=== PATIENT | female | born 1965 | race Caucasian/White ===

== ENCOUNTER → 2023-05-26 | Outpatient (CLI) | payer BC ==
--- NOTE | 2023-05-26 12:13 | US ---
EXAMINATION TYPE: US pelvic complete DATE OF EXAM: 05/26/2023 COMPARISON: NONE CLINICAL INDICATION: Female, 58 years old with history of R10.31 RIGHT LOWER QUADRANT PAIN; total hys terectomy RLQ pain TECHNIQUE: Transabdominal (TA EXAM MEASUREMENTS: Uterus: Surgically absent Endometrial Stripe: Surgically absent Right Ovary: Surgically absent Left Ovary: Surgically absent 1. Uterus: Surgically absent 2. Endometrium: Surgically absent 3. Right Ovary: Surgically absent 4. Left Ovary: Surgically absent 5. Bilateral Adnexa: wnl 6. Posterior cul-de-sac: wnl IMPRESSION: Status post hysterectomy and bilateral salpingo-oophorectomies. No pelvic free fluid or evident adnex al abnormality.
--- NOTE | 2023-05-26 12:16 | US ---
EXAMINATION TYPE: US abdomen complete DATE OF EXAM: 05/26/2023 COMPARISON: NONE CLINICAL INDICATION: Female, 58 years old with history of R10.31 RIGHT LOWER QUADRANT PAIN; RLQ pain gb removed TECHNIQUE: Multiple sonographic images of the abdomen are obtained. FINDINGS: EXAM MEASUREMENTS: Liver Length: 17 cm Gallbladder: Surgically absent CBD: .3 cm Spleen: 10.3 cm Right Kidney: 9.7 x 4.6 x 3.4 cm Left Kidney: 11.5 x 5.7 x 3.9 cm Pancreas: Tail obscured by overlying bowel gas Liver: Markedly increased echogenicity. Round hypoechoic area left lobe1.1 x 1.3 x 2.1cm Gallbladder: Surgically absent Evidence for sonographic Maradiaga's sign: No CBD: wnl Spleen: wnl Right Kidney: No hydronephrosis or masses seen Left Kidney: No hydronephrosis or masses seen Upper IVC: wnl Abd Aorta: wnl IMPRESSION: 1. Moderate to severe hepatic steatosis. Appropriate clinical management is advised. 2. A nonspecific 2.1 cm hypoechoic area in the left liver lobe posteriorly could represent an area of focal fatty sparing or underlying lesion such as a hemangioma. Recommend three-month follow-up liver ultrasound to reassess. 3. Status post cholecystectomy. No biliary ductal dilatation.
== END | disposition home or self-care (01) ==
LOC: RADUSWWP 07:38
PROVIDERS: ATTEND Family Medicine
DX: K76.0 Fatty (change of) liver, not elsewhere classified (principal); R10.31 Right lower quadrant pain; Z90.710 Acquired absence of both cervix and uterus; Z90.722 Acquired absence of ovaries, bilateral; Z90.49 Acquired absence of other specified parts of digestive tract
CPT/HCPCS: 76700; 76856

== ENCOUNTER → 2023-08-02 | Outpatient (CLI) | payer BC ==
--- NOTE | 2023-08-02 08:47 | US ---
EXAMINATION TYPE: US abdomen complete DATE OF EXAM: 08/02/2023 COMPARISON: US 2023 CLINICAL INDICATION: Female, 58 years old with history of K76.89 Liver Lesion; Liver lesion per order . Hx cholecystectomy. TECHNIQUE: Multiple sonographic images of the abdomen are obtained. FINDINGS: EXAM MEASUREMENTS: Liver Length: 15.6 cm Gallbladder Wall: Surgically absent CBD: Obscured Spleen: 10.2 cm Right Kidney: 11.2 x 6.0 x 5.7 cm Left Kidney: 11.8 x 6.1 x 5.9 cm [employer]ICATION [employer] ME[employer]IC NOTES: Exam is limited due to gas. Pancreas: Tail was obscured by gas. Liver: Very heterogeneous with increased echogenicity and attenuation. -Hypoechoic area seen within left lobe: 2.0 x 2.3 x 1.8 cm. -Hypoechoic area seen within right lobe: 2.9 x 2.1 x 1.9 cm. Gallbladder: Surgically absent. Evidence for sonographic Maradiaga's sign: No CBD: Obscured Spleen: Appears wnl Right Kidney: No hydronephrosis or masses seen Left Kidney: No hydronephrosis or masses seen Upper IVC: Appears wnl Abd Aorta: Iliacs were obscured. Proximal segment appears ectatic. IMPRESSION: Hepatic steatosis with areas of lower attenuation. A MRI liver mass protocol is recommended for [facility] evaluation and characterization.
== END | disposition home or self-care (01) ==
LOC: RADUSWWP 07:31
PROVIDERS: ATTEND Family Medicine
DX: K76.0 Fatty (change of) liver, not elsewhere classified (principal); K76.89 Other specified diseases of liver; Z90.49 Acquired absence of other specified parts of digestive tract
CPT/HCPCS: 76700

== ENCOUNTER → 2023-09-04 | Outpatient (CLI) | payer BC ==
--- NOTE | 2023-09-04 10:27 | MR ---
EXAMINATION TYPE: MR liver wo/w con DATE OF EXAM: 09/04/2023 7:14 AM CLINICAL INDICATION:Female, 58 years old with history of K76.89 liver mass; PHH, Liver mass, abnormal US. COMPARISON: Ultrasound exam from 08/02/2023 TECHNIQUE: Multiplanar multi-sequence imaging was performed without contrast. Post contrast imaging was performed. Post IV contrast subtraction images were also submitted for review. IV Contrast: 9 cc Gadavist FINDINGS: LOWER CHEST: Normal MR appearance.. ABDOMEN Liver: A 1.7 cm hyperintense T2, hypointense T1 lesion seen in the margin of the left lobe of the [facility] corresponding to the ultrasound abnormality. No suspicious lesions are identified in the right lob e. Gallbladder is surgically absent Pancreas: No ductal dilation. No evidence for solid mass. Spleen: Normal for size. Adrenal glands: Unremarkable. Kidneys: No evidence for obstructive uropathy. No suspicious renal masses. Stomach and Bowel: No evidence for bowel wall thickening or evidence for obstruction. Retroperitoneum/Peritoneum: No evidence of pneumoperitoneum or free fluid. Vasculature: No aortic aneurysm. Musculoskeletal: The osseous structures appear intact. Lymph Nodes: No gross evidence for lymphadenopathy. Abdominal wall: Unremarkable. IMPRESSION: Hepatic cysts. No worrisome lesions identified.
== END | disposition home or self-care (01) ==
LOC: RADMRIMAIN 06:25
PROVIDERS: ATTEND Family Medicine
DX: K76.89 Other specified diseases of liver (principal); D18.03 Hemangioma of intra-abdominal structures
CPT/HCPCS: 74183; A9585